=== PATIENT | male | born 1935 | race Caucasian/White ===

== ENCOUNTER 2019-07-12 12:20 | Outpatient (CLI) | payer MEDICARE, BC, SELFPAY ==
[2019-07-12 12:37] LABS: Basophils % 0.6 %; Eosinophils % 1.2 %; Hematocrit 33.9 % (42.0-52.0); Hemoglobin 10.2 g/dL (11.7-16.6); Lymphocytes # 0.6 10^3/uL (0.8-4.8); Lymphocytes % 33.7 %; Mean Corpuscular HGB Conc 30.1 g/dL (30.0-36.0); Mean Corpuscular Volume 86.3 fL (80-94); Monocytes # 0.3 10^3/uL (0.2-0.9); Monocytes % 15.3 %; Nucleated Red Blood Cells % 0 %; Platelet Count 66 10^3/cmm (130-400); Red Blood Count 3.93 10^6/uL (4.1-5.3); Red Cell Distribution Width 24.2 % (12.1-15.1); White Blood Count 1.6 10^3/uL (4.0-10.0)
[2019-07-12 14:11] LABS: Neutrophils # 0.8 10^3/uL (1.8-7.7); Slide Review Slide Review Perform
[2019-07-13 10:34] LABS: Ferritin 33 ng/mL (30-400); Iron 69 ug/dL (59-158); Percent Saturation 21.1 % (20-50); Thyroid Stimulating Hormone 18.07 uIU/mL (0.27-4.20); Total Iron Binding Capacity 327 mcg/dl; Unsaturated Iron Binding 258 ug/dL (112-347); Vitamin B12 319 pg/mL (232-1245)
[2019-07-13 11:32] LABS: Folate Level > 20.0 ng/mL (4.5-32.2)
--- NOTE | 2019-07-13 13:20 | ONC CON_ITS ---
Dr. Toribio New Patient Note Patient: Claudine York Unit #: [id number]: 1935 Dicatated By: Dena Toribio M.D.Date of Visit: Jul 12, 2019 Onc MED New Patient/Consult Referring Physician: Callum Garcia History of Present Illness: Mr. Desi York, is a 83-year-old gentleman who was recently diagnosed pancytopenia when his routine labs done on 06/13/2019 showed white blood count 1.1 hemoglobin 8.3 hematocrit 28.5 platelets 73,000 with a normal differential and his TSH was 52.0 B12 was 292 and patient was started on thyroid supplement Synthroid 50 ???g by mouth daily his repeat TSH on 06/25/2019 was 27.80 as repeat CBC done on 06/25/2019 shows white blood count 1.7, hemoglobin 8.1 hematocrit 28 platelets 76,000 MCV 82.1 and peripheral blood smear showed atypical lymphocytes. Patient denies any night sweats, denies any recent fever, denies any recent flulike symptoms, denies any peripheral lymphadenopathy, denies abdominal fullness, denies any weight loss. As per patient he is undergoing some sort of stress because of his son was diagnosed with esophageal cancer in April 2017 and he after few months and then suffered a stroke and now in a [facility]. Patient has long-standing history of alcohol use, as per patient he used to drink beer on daily basis for more than 30 years. But no hard liquor Patient denies starting any new medication recently patient denies any melena or hematochezia patient said he had colonoscopy done about 10 years ago at that time couple of polyps were removed and they were benign. Patient denies any indigestion or heartburn denies any jaundice denies any urine or stool color changes denies any petechiae or ecchymosis denies any headaches blurred vision double vision denies any dysuria . Past Medical History: Mr. York's medical history consists of anxiety, bph, depression, history of dvt, hyperlipidemia, hypertension, hypothyroidism, and type II diabetes. Past Surgical History: Mr. York's surgical/procedural history consists of colonoscopy. Medications: amLODIPine Besy-Benazepril HCl 1 Capsule (of 10-40 mg) Oral daily, Ferrous Sulfate 1 Tablet (of 325 (65 fe) mg) Oral b.i.d., glipiZIDE 1 Tablet (of 10 mg) Oral daily, Levothyroxine Sodium 1 Tablet (of 50 mcg) Oral daily, Pioglitazone HCl 1 Tablet (of 15 mg) Oral daily, Pravastatin Sodium 1 Tablet (of 40 mg) Oral daily, Tamsulosin HCl 1 Capsule (of 0.4 mg) Oral daily, Vitamin C 1 Capsule Oral b.i.d. Allergies: hydroCHLOROthiazide and Simvastatin. Social History: Mr. York is . Mr. York no longer smokes. He is a former drinker. Family History: There is no documented family history. Review Of Symptoms: Constitutional - Appetite is good and weight is stable. No fever, chills, hot flashes, or night sweats. Energy level is poor, ENMT - No sinus congestion/drainage. No mouth sores. No sore throat or difficulty swallowing, Hematologic/Lymphatic - Positive for easy bruising, Respiratory - No shortness of breath. No cough. No pleuritic pain or hemoptysis, Cardiovascular - No angina pain. No palpitations, Gastrointestinal - No nausea or vomiting. No heartburn or acid reflux. No diarrhea or constipation. No blood in the stool. Positive for black stools (Pt states he is taking iron supplements), Genitourinary (M) - No dysuria or hematuria. No urinary frequency. No urgency or incontinence, Musculoskeletal - Positive for joint pain, Neurologic - No headache or dizziness. No numbness/paresthesias or other focal neurologic symptoms, Psychiatric - No depression. No insomnia. Positive for anxiety and stress. Vital Signs: Performed on Jul 12, 2019 14:23: 0, 25.47, 2.07 sq.m, 72 in, 97 %, 63 /min, 18 /min, 172/67 mm(hg) (HIGH), 97.7 F (LOW), and 187.8 lbs (HIGH). Performance Status: 0 - Fully active, able to carry on all predisease activities without restrictions. (ECOG) Physical Examination: ENMT - No oral exudates, ulcers, masses, thrush or mucositis. Oropharynx clear. Tongue normal, Hematologic/Lymphatic - No petechiae or purpura. No tender or palpable lymph nodes in the cervical, supraclavicular, axillary or inguinal area, Respiratory - Lungs are clear to auscultation without rhonchi or wheezing, Cardiovascular - Regular rate and rhythm of heart, Abdomen - Non-tender, non-distended, Good bowel sounds. No guarding or rebound tenderness. No pulsatile masses, Extremities - no edema. Lab/Imaging: Most recent lab results are not available for this patient. Impression: Pancytopenia, etiology, appears multifactorial including but not limited to, considering his age underlying myelodysplasia cannot be ruled out other possibility could be nutritional B12 or iron deficiency or copper deficiency and or due to hypothyroidism , recently diagnosed with hypothyroidism and started on thyroid supplements. Or splenic sequestration or primary marrow disorder. Plan: Discussed with patient regarding his labs white blood count 1.16 globin 10.2 hematocrit 33.9 platelets 66,000 ANC 800 with normal limited differential Clinically, patient is doing well with no recurrent infections or evidence of gross bleeding, hemoglobin has improved to 10.2 g from 8.2 g on 06/25/2019. At this point we will consider abdominal sonogram to rule out hepatic cirrhosis or splenomegaly as patient has long-standing history of alcohol use. Also check B12 folate and iron studies and TSH level and if above-mentioned workup remained inconclusive we'll consider bone marrow evaluation. Patient return to clinic in 2 weeks with CBC CMP Signed By: Dena Toribio M.D. <<Signature on File>>
[2019-07-14 07:48] LABS: PROTEIN, TOTAL 6.4 g/dL (6.1-8.1)
[2019-07-16 12:21] LABS: ABNORMAL PROTEIN BAND 1 0.1 g/dL (NONE DETECTED); ALBUMIN 3.8 g/dL (3.8-4.8); ALPHA 1 GLOBULIN 0.3 g/dL (0.2-0.3); ALPHA 2 GLOBULIN 0.7 g/dL (0.5-0.9); BETA 1 GLOBULIN 0.5 g/dL (0.4-0.6); BETA 2 GLOBULIN 0.3 g/dL (0.2-0.5); GAMMA GLOBULIN 0.8 g/dL (0.8-1.7)
== END 2019-07-12 12:21 | disposition home or self-care (01) ==
LOC: ONCMED 12:30
PROVIDERS: Visit Provider Internal Medicine Hematology & Oncology
DX: D61.818 Other pancytopenia (principal); F41.8 Other specified anxiety disorders; N40.0 Benign prostatic hyperplasia without lower urinary tract symptoms; E78.5 Hyperlipidemia, unspecified; I10 Essential (primary) hypertension; E03.9 Hypothyroidism, unspecified; E11.9 Type 2 diabetes mellitus without complications; F10.20 Alcohol dependence, uncomplicated; Z79.84 Long term (current) use of oral hypoglycemic drugs; Z86.718 Personal history of other venous thrombosis and embolism
CPT/HCPCS: 36415; 82607; 82728; 82746; 83540; 83550; 84155; 84165; 84443; 85025; 99204

== ENCOUNTER 2019-07-26 07:02 | Outpatient (CLI) | payer MEDICARE, BC, SELFPAY ==
--- NOTE | 2019-07-26 07:05 | US_ITS ---
WS: [id number] Complete ABDOMINAL ULTRASOUND HISTORY: Pancytopenia COMPARISON: None available. Liver: 14.3 cm in length. Liver is normal size and echogenicity with no mass or intrahepatic dilatati on. Gallbladder: Gallbladder is not identified. May be contracted or surgically removed. There is a soft tissue mass in the region of the gallbladder fossa which could be contracted gallbladder with wall th ickening and stones. No history of cholecystectomy. Pancreas: Normal size and echogenicity. CBD: 0.3 cm. Right kidney: 10.6 cm x 5.2 cm x 4.7 cm. Normal size kidney. There is a solid exophytic mass from th e inferior pole measuring 3.3 x 2.7 x 3.1 cm. There is increased vascularity. Increased vascularity i s significant. No obstruction. Left kidney: 10.5 cm x 5.1 cm x 3.5 cm. Exophytic cystic mass is slightly elongated and oval from th e inferior lateral kidney. Cyst measures 7.5 x 3.6 x 7.8 cm. Spleen: Marked enlargement of the spleen. Spleen measures 19.1 cm in length and transversely by 18.3 cm. Normal homogeneous echotexture. Abdominal aorta and IVC are within normal limits. No ascites. 4. Recommendation: Follow-up CT abdomen and pelvis with IV and oral contrast to a reevaluate the abn ormalities as described in the above impression. US/US abdomen complete* [id number] IMPRESSION: 1. Severe splenomegaly. 2. Solid mass inferior pole RIGHT kidney measures 3.3 x 2.7 x 3.1 cm. Suspicio us for renal cell carcinoma. 3. Abnormal gallbladder. Gallbladder is not identified as a discrete structure . Soft tissue mass in the region of the gallbladder fossa.
== END 2019-07-26 07:03 | disposition home or self-care (01) ==
LOC: US 07:03
PROVIDERS: Visit Provider Internal Medicine Hematology & Oncology
DX: D61.818 Other pancytopenia (principal); R16.1 Splenomegaly, not elsewhere classified; N28.89 Other specified disorders of kidney and ureter; K82.8 Other specified diseases of gallbladder
CPT/HCPCS: 76700

== ENCOUNTER 2019-07-27 10:57 | Outpatient (CLI) | payer MEDICARE, BC, SELFPAY ==
[2019-07-27 11:35] LABS: Basophils % 0.5 %; Eosinophils % 1.6 %; Hemoglobin 11.1 g/dL (11.7-16.6); Lymphocytes # 0.5 10^3/uL (0.8-4.8); Lymphocytes % 25.7 %; Mean Corpuscular HGB Conc 31.7 g/dL (30.0-36.0); Mean Corpuscular Volume 88.4 fL (80-94); Mean Platelet Volume 10.2 fL (7.4-10.4); Monocytes # 0.3 10^3/uL (0.2-0.9); Monocytes % 13.6 %; Neutrophils # 1.1 10^3/uL (1.8-7.7); Neutrophils % 58.1 %; Nucleated Red Blood Cells % 0 %; Platelet Count 90 10^3/cmm (130-400); Red Blood Count 3.96 10^6/uL (4.1-5.3); Red Cell Distribution Width 23.1 % (12.1-15.1); White Blood Count 1.9 10^3/uL (4.0-10.0)
--- NOTE | 2019-07-27 11:46 | ONC FU_ITS ---
Dr. Toribio follow up note Patient: Madison York Unit #: [id number]: 1935 Dicatated By: Dena Toribio M.D.Date of Visit:Jul 27, 2019 Onc Med Follow-up/Prog Note History of Present Illness: Mr. Desi York, is a 83-year-old gentleman who was recently diagnosed pancytopenia when his routine labs done on 06/13/2019 showed white blood count 1.1 hemoglobin 8.3 hematocrit 28.5 platelets 73,000 with a normal differential and his TSH was 52.0 B12 was 292 and patient was started on thyroid supplement Synthroid 50 ???g by mouth daily his repeat TSH on 06/25/2019 was 27.80 as repeat CBC done on 06/25/2019 shows white blood count 1.7, hemoglobin 8.1 hematocrit 28 platelets 76,000 MCV 82.1 and peripheral blood smear showed atypical lymphocytes. Patient denies any night sweats, denies any recent fever, denies any recent flulike symptoms, denies any peripheral lymphadenopathy, denies abdominal fullness, denies any weight loss. As per patient he is undergoing some sort of stress because of his son was diagnosed with esophageal cancer in April 2017 and he after few months and then suffered a stroke and now in a shelter. Patient has long-standing history of alcohol use, as per patient he used to drink beer on daily basis for more than 30 years. But no hard liquor Patient denies starting any new medication recently patient denies any melena or hematochezia patient said he had colonoscopy done about 10 years ago at that time couple of polyps were removed and they were benign. Patient denies any indigestion or heartburn denies any jaundice denies any urine or stool color changes denies any petechiae or ecchymosis denies any headaches blurred vision double vision denies any dysuria . Abdominal sonogram showed liver size normal, no mass seen. Marked enlargement of spleen mild 19.1 cm and 18.3 cm. Normal homogeneous t echotexture. Right kidney 10.6 x 5.2 x 4.7 cm normal-sized kidney there is a solid exophytic mass from the inferior pole measuring 3.3 x 2.7 x 3.1 cm there is increased vascularity. Left kidney 10.5 x 5.1 cm exophytic cystic mass is slightly elongated and or will from the inferior lateral kidney measuring 7.5 x 3.6 x 7.8 cm. Denies any specific complaints, no melena hematochezia, no nausea or vomiting no diarrhea constipation Medications: amLODIPine Besy-Benazepril HCl 1 Capsule (of 10-40 mg) Oral daily, Ferrous Sulfate 1 Tablet (of 325 (65 fe) mg) Oral b.i.d., glipiZIDE 1 Tablet (of 10 mg) Oral daily, Levothyroxine Sodium 1 Tablet (of 50 mcg) Oral daily, Pioglitazone HCl 1 Tablet (of 15 mg) Oral daily, Pravastatin Sodium 1 Tablet (of 40 mg) Oral daily, Tamsulosin HCl 1 Capsule (of 0.4 mg) Oral daily, Vitamin C 1 Capsule Oral b.i.d. Allergies: hydroCHLOROthiazide and Simvastatin. Review of Systems: Constitutional - Appetite is good and weight is stable. No fever, chills, hot flashes, or night sweats. Energy level is poor, ENMT - No sinus congestion/drainage. No mouth sores. No sore throat or difficulty swallowing, Hematologic/Lymphatic - Positive for easy bruising, Respiratory - No shortness of breath. No cough. No pleuritic pain or hemoptysis, Cardiovascular - No angina pain. No palpitations, Gastrointestinal - No nausea or vomiting. No heartburn or acid reflux. No diarrhea or constipation. No blood in the stool. Positive for black stools (Pt states he is taking iron supplements), Genitourinary (M) - No dysuria or hematuria. No urinary frequency. No urgency or incontinence, Musculoskeletal - Positive for joint pain, Neurologic - No headache or dizziness. No numbness/paresthesias or other focal neurologic symptoms, Psychiatric - Positive for depression. No insomnia. Positive for anxiety and stress. Vital Signs: Performed on Jul 27, 2019 11:24 Height - 72.00 in Weight - 187 lbs (LOW) BSA - 2.07 sq.m BMI - 25.36 Temperature - 97.3 F (LOW) Pulse - 70 /min Respiration - 18 /min BP - 177/77 mm(hg) (HIGH) O2 Sat - 98 % Pain - 2 Performance Status: 0 - Fully active, able to carry on all predisease activities without restrictions. (ECOG) Physical Examination: Physical Exam-Comments is not available for this patient. Lab/Imaging: Test performed on Jul 12, 2019 12:28 Ferritin 33 ng/mL Iron 69 mcg/dL TSH 18.07 uIU/mL Vitamin B12 319 pg/mL Iron Binding Capacity (TIBC) 327 mcg/dl % Iron Saturation 21.1 % UIBC 258 mcg/dL WBC 1.6 10 3/uL RBC 3.93 10 6/uL HGB 10.2 g/dL HCT 33.9 % MCV 86.3 fL MCH 26.0 pg MCHC 30.1 g/dL RDW 24.2 % Platelet Count 66 10 3/cmm MPV 11.0 fL Neutrophils 0.8 10 3/uL Lymphocytes 0.6 10 3/uL Monocytes 0.3 10 3/uL Eosinophils 0.0 10 3/uL Basophils 0.0 10 3/uL Neutrophil % 48.0 % Lymphocyte % 33.7 % Monocyte % 15.3 % Eosinophil % 1.2 % Basophils % 0.6 % CBC Slide Review Slide Review Perform SLIDE REVIEW AGREES WITH AUTOMATED RESULTS ST Impression: Pancytopenia, etiology, appears multifactorial including but not limited to, considering his age underlying myelodysplasia cannot be ruled out other possibility could be nutritional B12 or iron deficiency or copper deficiency and or due to hypothyroidism , recently diagnosed with hypothyroidism and started on thyroid supplements. Or splenic sequestration or primary marrow disorder. Abdominal sonogram done on 07/26/2019 showed marked enlargement of spleen measuring 19.1 x 18.3 cm normal homogeneous echotexture. Right kidney shows solid exophytic mass from inferior pole measuring 2.3 x 2.7 x 3.1 cm with increased vascularity Left kidney shows exophytic cystic mass measuring 7.5 x 3.6 x 7.8 cm. Liver is normal size and echodensity. And is a soft tissue mass in the region of gallbladder fossa which could be contracted gallbladder with wall thickening and stones. Plan: Discussed with patient regarding his abdominal sonogram findings. Patient was supposed to get CBC done this morning but somehow was not done. But his abdominal sonogram showed massive splenomegaly with normal homogeneous echotexture, etiology unclear could be due to hepatic cirrhosis but sonogram shows no abnormality in the liver patient does have history of chronic alcohol use over many years as per patient usually he used to drink beer not hard liquor. And other concern is right kidney exophytic solid mass and so CT scan of abdomen/pelvis is recommended. next So his pancytopenia could be due to splenic sequestration and anemia may have additional causes like chronic GI blood loss like esophageal varices . And considering his age underlying myelodysplasia cannot be ruled out. We will schedule for CT scan of abdomen pelvis to have more detailed look at these abnormality seen on abdominal sonogram and then plan accordingly patient return to clinic in a week with CT scan of abdomen pelvis and CBC CMP. Signed By: Dena Toribio M.D. <<Signature on File>>
[2019-07-27 11:47] LABS: Alanine Aminotransferase 16 U/L (0-41); Albumin Level 4.2 g/dL (3.5-5.2); Alkaline Phosphatase 109 IU/L (40-130); Anion Gap 14.3 (5-19); Aspartate Amino Transferase 25 U/L (0-40); Blood Urea Nitrogen 16 mg/dL (8-23); Calcium 9.7 mg/dL (8.5-10.5); Carbon Dioxide 28 mmol/L (22-29); Chloride 99 mmol/L (98-107); Globulin 2.2 g/dL (1.3-4.6); Glucose 326 mg/dL (65-115); Osmolality Calculated 293 mOsm/kg (285-295); Potassium 4.3 mmol/L (3.5-5.1); Sodium 137 mmol/L (136-145); Total Bilirubin 0.2 mg/dL (0.15-1.2); Total Protein 6.4 g/dL (6.6-8.7)
[2019-07-27 12:08] LABS: Slide Review Slide Review Perform
== END 2019-07-27 10:58 | disposition home or self-care (01) ==
LOC: ONCMED 10:59
PROVIDERS: Visit Provider Internal Medicine Hematology & Oncology
DX: D61.818 Other pancytopenia (principal); R16.1 Splenomegaly, not elsewhere classified; N28.89 Other specified disorders of kidney and ureter; R19.09 Other intra-abdominal and pelvic swelling, mass and lump; E03.9 Hypothyroidism, unspecified; K80.80 Other cholelithiasis without obstruction; F10.21 Alcohol dependence, in remission
CPT/HCPCS: 36415; 80053; 85025; 99214

== ENCOUNTER 2019-08-08 10:20 | Outpatient (CLI) | payer MEDICARE, BC, SELFPAY ==
[2019-08-08 12:00] LABS: Basophils % 0.5 %; Eosinophils % 1.1 %; Hematocrit 35.8 % (42.0-52.0); Hemoglobin 11.2 g/dL (11.7-16.6); Lymphocytes # 0.6 10^3/uL (0.8-4.8); Mean Corpuscular HGB Conc 31.3 g/dL (30.0-36.0); Mean Corpuscular Hemoglobin 27.6 pg (28.0-34.0); Mean Corpuscular Volume 88.2 fL (80-94); Monocytes # 0.2 10^3/uL (0.2-0.9); Monocytes % 12.8 %; Neutrophils % 51.1 %; Nucleated Red Blood Cells % 0 %; Platelet Count 76 10^3/cmm (130-400); Red Blood Count 4.06 10^6/uL (4.1-5.3); Red Cell Distribution Width 22.3 % (12.1-15.1); White Blood Count 1.9 10^3/uL (4.0-10.0)
[2019-08-08 12:24] LABS: Alanine Aminotransferase 22 U/L (0-41); Albumin Level 4.2 g/dL (3.5-5.2); Alkaline Phosphatase 126 IU/L (40-130); Anion Gap 17.4 (5-19); Aspartate Amino Transferase 30 U/L (0-40); Blood Urea Nitrogen 17 mg/dL (8-23); Calcium 9.5 mg/dL (8.5-10.5); Carbon Dioxide 25 mmol/L (22-29); Chloride 101 mmol/L (98-107); Globulin 2.8 g/dL (1.3-4.6); Glucose 318 mg/dL (65-115); Osmolality Calculated 297 mOsm/kg (285-295); Potassium 4.4 mmol/L (3.5-5.1); Sodium 139 mmol/L (136-145); Total Bilirubin 0.2 mg/dL (0.15-1.2)
[2019-08-08 14:07] LABS: Slide Review Slide Review Perform
== END 2019-08-08 10:21 | disposition home or self-care (01) ==
LOC: ONCMED 13:56
PROVIDERS: Visit Provider Internal Medicine Hematology & Oncology
DX: D61.818 Other pancytopenia (principal)
CPT/HCPCS: 36415; 80053; 85025

== ENCOUNTER 2019-08-09 09:47 | Outpatient (CLI) | payer MEDICARE, BC, SELFPAY ==
--- NOTE | 2019-08-09 10:00 | CT_ITS ---
WS: [id number] CT ABDOMEN AND PELVIS WITH CONTRAST HISTORY: PANCYTOPENIA TECHNIQUE: Imaging performed of the abdomen and pelvis with IV contrast. Single phase imaging of the abdomen. Coronal and sagittal reformats are submitted. All CT scans at [facility] use at least one of these dose optimization techniques: automated exposure control; mA and/or kV adjustment per patient size (includes targeted exams where dose is matched to clinical indication); or iterativ e reconstruction. IV CONTRAST: Omnipaque 300; 95 mL IV. Oral contrast: Yes. DLP: 1203.41 mGycm COMPARISON: Ultrasound abdomen 07/26/2019 Lower thorax: Well-circumscribed noncalcified 4 mm nodule in the RIGHT middle lobe. Heart size is nor mal. No hiatal hernia. Liver/biliary system: Liver is very slightly enlarged. No mass or bile duct dilatation. Portal vein m easures 19 mm. Gallbladder: No history of prior cholecystectomy. Normal gallbladder is not identified. In the gallbl adder fossa there is a collection of high density material which is probably stones in a contracted g allbladder. Several of the stones are directed toward the cystic duct although there is no obstructio n. Pancreas: Normal. Spleen: Markedly enlarged spleen extends over length of 21.8 cm x 11.2 cm transversely. Spleen is enl arged with mass effect upon the LEFT kidney and pancreatic tail. Enlargement of the splenic artery. N o splenic mass. Adrenal glands: Normal. Right kidney: Normal size RIGHT kidney. Solid enhancing mass is partially exophytic from the lower po le. Called with a type enhancement of the solid mass. Mass measures 3.7 x 3.3 x 3.0 cm. No renal obst ruction. Left kidney: Exophytic cyst from the lower pole of the LEFT kidney measures 6.9 x 3.4 x 3.2 cm. No so lid mass. Intermittent wall thickening and mild enhancement of the mid to distal LEFT ureter. No ston e is identified. Aorta: Atherosclerosis aorta. Moderate calcification and ectasia but no aneurysm. Lymphadenopathy: There are a few very nonspecific and subcentimeter retroperitoneal lymph nodes. Larg est lymph node is aortocaval measuring 9 mm in diameter. Free fluid: None. GI tract: No GI tract obstruction. The appendix is not definitely identified. There are numerous dive rticula in the descending and sigmoid colon. No acute inflammatory process. Abdominal wall: Unremarkable abdominal wall. No hernia. Pelvis: Well-distended urinary bladder. Mild diffuse bladder wall thickening. There is asymmetric thi ckening of the bladder wall on the RIGHT. Prominent diverticulum also on the RIGHT lateral wall. Pros lópez gland is enlarged and indents the urinary bladder. Gland measures 5.3 x 4.2 cm with a large cent ral calcification. Bones: Thoracolumbar scoliosis. CT/CT abdomen pelvis w con* [id number] IMPRESSION: 1. Solid mass lower pole RIGHT kidney measures 3.7 x 3.3 x 3.0 cm. Consistent with renal cell carcinoma. 2. Hepatosplenomegaly. Marked enlargement of the spleen with a dilated portal vein. Findings consistent with portal hypertension. 3. Simple LEFT renal cyst. 4. Atherosclerosis aorta. 5. 4 mm noncalcified RIGHT middle lobe nodule. Recommend follow-up chest CT in 6 months. 6. There is mild dilatation with enhancement involving the mid to distal LEFT ureter of uncertain etiology. May be postinflammatory. Cannot exclude mass or n eoplasm. Consider follow-up evaluation by urology. 7. Mild bladder wall thickening and a RIGHT lateral diverticulum. Findings are probably due to a bladder obstruction and hypertrophy as there is an enlarged prostate gland. 8. Sigmoid diverticulosis without acute diverticulitis. 9. Cholelithiasis in a markedly contracted gallbladder with no biliary dilatat ion.
[2019-08-09] MEDS: iohexol 300 mg/mL 50 mL Btl PO (11:33)
[2019-08-09] MEDS: iohexol 300 mg/mL 100 mL Btl IV (11:46)
== END 2019-08-09 09:48 | disposition home or self-care (01) ==
PROVIDERS: PCP Internal Medicine; Visit Provider Internal Medicine Hematology & Oncology
DX: D61.818 Other pancytopenia (principal); R16.2 Hepatomegaly with splenomegaly, not elsewhere classified; N28.89 Other specified disorders of kidney and ureter; N28.1 Cyst of kidney, acquired; I70.0 Atherosclerosis of aorta; K57.30 Diverticulosis of large intestine without perforation or abscess without bleeding; K80.20 Calculus of gallbladder without cholecystitis without obstruction
CPT/HCPCS: 74177

== ENCOUNTER 2019-08-17 11:49 | Outpatient (CLI) | payer MEDICARE, BC, SELFPAY ==
--- NOTE | 2019-08-17 16:23 | ONC FU_ITS ---
Dr. Toribio follow up note Patient: Madison York Unit #: [id number]: 1935 Dicatated By: Dena Toribio M.D.Date of Visit:Aug 17, 2019 Onc Med Follow-up/Prog Note History of Present Illness: Mr. Desi York, is a 83-year-old gentleman who was recently diagnosed pancytopenia when his routine labs done on 06/13/2019 showed white blood count 1.1 hemoglobin 8.3 hematocrit 28.5 platelets 73,000 with a normal differential and his TSH was 52.0 B12 was 292 and patient was started on thyroid supplement Synthroid 50 ???g by mouth daily his repeat TSH on 06/25/2019 was 27.80 as repeat CBC done on 06/25/2019 shows white blood count 1.7, hemoglobin 8.1 hematocrit 28 platelets 76,000 MCV 82.1 and peripheral blood smear showed atypical lymphocytes. Patient denies any night sweats, denies any recent fever, denies any recent flulike symptoms, denies any peripheral lymphadenopathy, denies abdominal fullness, denies any weight loss. As per patient he is undergoing some sort of stress because of his son was diagnosed with esophageal cancer in April 2017 and he after few months and then suffered a stroke and now in a residential. Patient has long-standing history of alcohol use, as per patient he used to drink beer on daily basis for more than 30 years. But no hard liquor Patient denies starting any new medication recently patient denies any melena or hematochezia patient said he had colonoscopy done about 10 years ago at that time couple of polyps were removed and they were benign. Patient denies any indigestion or heartburn denies any jaundice denies any urine or stool color changes denies any petechiae or ecchymosis denies any headaches blurred vision double vision denies any dysuria . Abdominal sonogram showed liver size normal, no mass seen. Marked enlargement of spleen mild 19.1 cm and 18.3 cm. Normal homogeneous t echotexture. Right kidney 10.6 x 5.2 x 4.7 cm normal-sized kidney there is a solid exophytic mass from the inferior pole measuring 3.3 x 2.7 x 3.1 cm there is increased vascularity. Left kidney 10.5 x 5.1 cm exophytic cystic mass is slightly elongated and or will from the inferior lateral kidney measuring 7.5 x 3.[address] scan of abdomen done on 08/09/2019 showed solid mass lower pole right kidney measuring 2.7 x 2.3 x 3 cm consistent with renal cell carcinoma Hepatosplenomegaly marked enlargement of spleen with dilated portal vein. Finding consistent with portal hypertension. Simple left renal cyst 4 mm noncalcified right middle lobe nodule recommend CT scan 6 months. Mild dilatation with enhancement involving mid to distal left ureter of uncertain etiology Mild bladder wall thickening and right lateral diverticulum probably due to bladder obstruction or hypertrophic as there is an enlarged prostate gland. Came for follow-up, denies any specific complaints, denies any fever or chills, denies any nausea vomiting denies any abdominal pain, denies any melena hematochezia, denies any hemoptysis hematemesis, denies any particular ecchymosis. Denies any hematuria. Patient said he has history of urinary bladder stones, causing obstruction, for which he went to the urologist in [place], Medications: amLODIPine Besy-Benazepril HCl 1 Capsule (of 10-40 mg) Oral daily, Ferrous Sulfate 1 Tablet (of 325 (65 fe) mg) Oral b.i.d., glipiZIDE 1 Tablet (of 10 mg) Oral daily, Levothyroxine Sodium 1 Tablet (of 50 mcg) Oral daily, Pioglitazone HCl 1 Tablet (of 15 mg) Oral daily, Pravastatin Sodium 1 Tablet (of 40 mg) Oral daily, Tamsulosin HCl 1 Capsule (of 0.4 mg) Oral daily, Vitamin C 1 Capsule Oral b.i.d. Allergies: hydroCHLOROthiazide and Simvastatin. Review of Systems: Constitutional - Appetite is good and weight is stable. No fever, chills, hot flashes, or night sweats. Energy level is poor, ENMT - No sinus congestion/drainage. No mouth sores. No sore throat or difficulty swallowing, Hematologic/Lymphatic - Positive for easy bruising, Respiratory - No shortness of breath. No cough. No pleuritic pain or hemoptysis, Cardiovascular - No angina pain. No palpitations, Gastrointestinal - No nausea or vomiting. No heartburn or acid reflux. No diarrhea or constipation. No blood in the stool. Positive for black stools (Pt states he is taking iron supplements), Genitourinary (M) - No dysuria or hematuria. No urinary frequency. No urgency or incontinence, Musculoskeletal - Positive for joint pain, Neurologic - No headache or dizziness. No numbness/paresthesias or other focal neurologic symptoms, Psychiatric - Positive for depression. No insomnia. Positive for anxiety and stress. Vital Signs: Performed on Aug 17, 2019 12:06 Height - 72.00 in Weight - 184.4 lbs (LOW) BSA - 2.06 sq.m BMI - 25.01 Temperature - 97.6 F (LOW) Pulse - 68 /min Respiration - 17 /min BP - 165/70 mm(hg) (HIGH) O2 Sat - 98 % Pain - 0 Performance Status: 0 - Fully active, able to carry on all predisease activities without restrictions. (ECOG) Physical Examination: ENMT - no mouth sores, Respiratory - Lungs are clear to auscultation, Cardiovascular - Regular rate and rhythm of heart, Abdomen - hepatosplenomegaly present,Good bowel sounds. No guarding or rebound tenderness, Extremities - no edema. Lab/Imaging: Test performed on Aug 08, 2019 10:20 Sodium 139 mmol/L Potassium 4.4 mmol/L Chloride 101 mmol/L CO2 25 mmol/L Anion Gap 17.4 BUN 17 mg/dL Creatinine 1.0 mg/dL Cr Clearance (Est) 65.9700 mL/min Glucose 318 mg/dL Calcium 9.5 mg/dL Protein, Total 7.0 g/dL Albumin 4.2 g/dL Globulin 2.8 g/dL Bilirubin, Total 0.2 mg/dL ALT (SGPT) 22 U/L AST (SGOT) 30 U/L Alkaline Phosphatase 126 IU/L WBC 1.9 10 3/uL RBC 4.06 10 6/uL HGB 11.2 g/dL HCT 35.8 % MCV 88.2 fL MCH 27.6 pg MCHC 31.3 g/dL RDW 22.3 % Platelet Count 76 10 3/cmm MPV 12.0 fL Neutrophils 1.0 10 3/uL Lymphocytes 0.6 10 3/uL Monocytes 0.2 10 3/uL Eosinophils 0.0 10 3/uL Basophils 0.0 10 3/uL Neutrophil % 51.1 % Lymphocyte % 34.0 % Monocyte % 12.8 % Eosinophil % 1.1 % Basophils % 0.5 % CBC Slide Review Slide Review Perform SLIDE REVIEW AGREES WITH AUTO DIFF. Test performed on Jul 12, 2019 12:28 Ferritin 33 ng/mL Iron 69 mcg/dL TSH 18.07 uIU/mL Vitamin B12 319 pg/mL Iron Binding Capacity (TIBC) 327 mcg/dl % Iron Saturation 21.1 % UIBC 258 mcg/dL Impression: Pancytopenia, etiology, appears multifactorial including but not limited to, considering his age underlying myelodysplasia cannot be ruled out other possibility could be nutritional B12 or iron deficiency or copper deficiency and or due to hypothyroidism , recently diagnosed with hypothyroidism and started on thyroid supplements. Or splenic sequestration or primary marrow disorder. Abdominal sonogram done on 07/26/2019 showed marked enlargement of spleen measuring 19.1 x 18.3 cm normal homogeneous echotexture. Right kidney shows solid exophytic mass from inferior pole measuring 2.3 x 2.7 x 3.1 cm with increased vascularity Left kidney shows exophytic cystic mass measuring 7.5 x 3.6 x 7.8 cm. Liver is normal size and echodensity. And is a soft tissue mass in the region of gallbladder fossa which could be contracted gallbladder with wall thickening and stones. 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 As far as pancytopenia is concern, patient is not symptomatic e.g. no evidence of gross bleeding, and there's no symptoms due to mild anemia. So no further workup needed but continue to monitor But concern is right kidney mass seen again on CT scan of abdomen and findings are consistent with renal cell carcinoma. Discussed with patient and we will refer him to urology Dr. Ortiz for evaluation and also for chronic changes seen in urinary bladder and left ureter. Patient return to 1 week after urology evaluation with CBC. Signed By: Dena Toribio M.D. <<Signature on File>>
== END 2019-08-17 11:50 | disposition home or self-care (01) ==
LOC: ONCMED 11:49
PROVIDERS: PCP Internal Medicine; Visit Provider Internal Medicine Hematology & Oncology
DX: D61.818 Other pancytopenia (principal); N28.89 Other specified disorders of kidney and ureter; R16.2 Hepatomegaly with splenomegaly, not elsewhere classified
CPT/HCPCS: 99214

== ENCOUNTER → 2019-08-21 10:50 | Outpatient (BNVA) | payer MEDICARE, BC, SELFPAY | PROVIDERS: PCP Internal Medicine; Visit Provider Urology | DX: N28.89 Other specified disorders of kidney and ureter (principal) | CPT/HCPCS: 80053; 81001 ==

== ENCOUNTER 2019-09-14 08:50 | Outpatient (CLI) | payer MEDICARE, BC, SELFPAY ==
--- NOTE | 2019-10-15 16:09 | ONC FU_ITS ---
Dr. Toribio follow up note Patient: Madison York Unit #: [id number]: 1935 Dicatated By: Dena Toribio M.D.Date of Visit:September 14, 2019 Onc Med Follow-up/Prog Note History of Present Illness: Mr. Desi York, is a 83-year-old gentleman who was recently diagnosed pancytopenia when his routine labs done on 06/13/2019 showed white blood count 1.1 hemoglobin 8.3 hematocrit 28.5 platelets 73,000 with a normal differential and his TSH was 52.0 B12 was 292 and patient was started on thyroid supplement Synthroid 50 ???g by mouth daily his repeat TSH on 06/25/2019 was 27.80 as repeat CBC done on 06/25/2019 shows white blood count 1.7, hemoglobin 8.1 hematocrit 28 platelets 76,000 MCV 82.1 and peripheral blood smear showed atypical lymphocytes. Patient denies any night sweats, denies any recent fever, denies any recent flulike symptoms, denies any peripheral lymphadenopathy, denies abdominal fullness, denies any weight loss. As per patient he is undergoing some sort of stress because of his son was diagnosed with esophageal cancer in April 2017 and he after few months and then suffered a stroke and now in a fpc. Patient has long-standing history of alcohol use, as per patient he used to drink beer on daily basis for more than 30 years. But no hard liquor Patient denies starting any new medication recently patient denies any melena or hematochezia patient said he had colonoscopy done about 10 years ago at that time couple of polyps were removed and they were benign. Patient denies any indigestion or heartburn denies any jaundice denies any urine or stool color changes denies any petechiae or ecchymosis denies any headaches blurred vision double vision denies any dysuria . Abdominal sonogram showed liver size normal, no mass seen. Marked enlargement of spleen mild 19.1 cm and 18.3 cm. Normal homogeneous t echotexture. Right kidney 10.6 x 5.2 x 4.7 cm normal-sized kidney there is a solid exophytic mass from the inferior pole measuring 3.3 x 2.7 x 3.1 cm there is increased vascularity. Left kidney 10.5 x 5.1 cm exophytic cystic mass is slightly elongated and or will from the inferior lateral kidney measuring 7.5 x 3.[address] scan of abdomen done on 08/09/2019 showed solid mass lower pole right kidney measuring 2.7 x 2.3 x 3 cm consistent with renal cell carcinoma Hepatosplenomegaly marked enlargement of spleen with dilated portal vein. Finding consistent with portal hypertension. Simple left renal cyst 4 mm noncalcified right middle lobe nodule recommend CT scan 6 months. Mild dilatation with enhancement involving mid to distal left ureter of uncertain etiology Mild bladder wall thickening and right lateral diverticulum probably due to bladder obstruction or hypertrophic as there is an enlarged prostate gland. Patient said he has history of urinary bladder stones, causing obstruction, for which he went to the urologist in [place], Seen by Dr. Ortiz on 08/21/2019 regarding right kidney mass, as per patient treatment options including conservative observation were discussed patient opted for observation and now scheduled to see him in December 2019 with follow-up scan. Came for follow-up, denies any specific complaints, no nausea or vomiting, no diarrhea constipation, no hematuria, no melena hematochezia, no nosebleed or gum bleed, no fever or chills. Medications: amLODIPine Besy-Benazepril HCl 1 Capsule (of 10-40 mg) Oral daily, Ferrous Sulfate 1 Tablet (of 325 (65 fe) mg) Oral b.i.d., glipiZIDE 1 Tablet (of 10 mg) Oral daily, Levothyroxine Sodium 1 Tablet (of 50 mcg) Oral daily, Pioglitazone HCl 1 Tablet (of 15 mg) Oral daily, Pravastatin Sodium 1 Tablet (of 40 mg) Oral daily, Tamsulosin HCl 1 Capsule (of 0.4 mg) Oral daily, Vitamin C 1 Capsule Oral b.i.d. Allergies: hydroCHLOROthiazide and Simvastatin. Review of Systems: Constitutional - Appetite is good and weight is stable. No fever, chills, hot flashes, or night sweats. Energy level is poor, ENMT - No sinus congestion/drainage. No mouth sores. No sore throat or difficulty swallowing, Hematologic/Lymphatic - Positive for easy bruising, Respiratory - No shortness of breath. No cough. No pleuritic pain or hemoptysis, Cardiovascular - No angina pain. No palpitations, Gastrointestinal - No nausea or vomiting. No heartburn or acid reflux. Positive for diarrhea, no constipation. No blood in the stool. Positive for black stools (Pt states he is taking iron supplements), Genitourinary (M) - No dysuria or hematuria. No urinary frequency. No urgency or incontinence, Musculoskeletal - Positive for joint pain, Neurologic - No headache or dizziness. No numbness/paresthesias or other focal neurologic symptoms, Psychiatric - Positive for depression. No insomnia. Positive for anxiety and stress. Vital Signs: Performed on September 14, 2019 09:10 Height - 72.00 in Weight - 185.4 lbs (HIGH) BSA - 2.06 sq.m BMI - 25.14 Temperature - 98.3 F (LOW) Pulse - 65 /min Respiration - 16 /min BP - 167/70 mm(hg) (HIGH) O2 Sat - 97 % Pain - 1 Performance Status: 0 - Fully active, able to carry on all predisease activities without restrictions. (ECOG) Physical Examination: ENMT - no mouth sores, Respiratory - Lungs are clear, Cardiovascular - Regular rate and rhythm of heart, Abdomen - bowel sounds present, soft, splenomegaly, Extremities - no edema or rash. Lab/Imaging: Test performed on September 13, 2019 09:39 Glucose 328 mg/dL BUN 17 mg/dL Creatinine 1.04 mg/dL Cr Clearance (Est) 62.55 mL/min Sodium 139 mmol/L Potassium 4.3 mmol/L Chloride 102 mmol/L CO2 26 mmol/L Calcium 9.4 mg/dL Protein, Total 6.7 g/dL Albumin 4.2 g/dL Bilirubin, Total 0.3 mg/dL Alkaline Phosphatase 106 IU/L AST (SGOT) 23 IU/L ALT (SGPT) 16 IU/L WBC 1.9 10^9/L RBC 3.92 10^12/L HGB 11.5 g/dL HCT 35.0 % MCV 89.3 fl MCH 29.3 pg MCHC 32.9 g/dL RDW 18.1 % Platelet Count 65 10^9/L MPV 10.8 fL Neutrophils (Gran) 1.35 10^9/L Lymphocytes 0.27 10^9/L Monocytes 0.19 10^9/L Basophils 0.02 10^9/L Manual Lymphocytes 14 % Manual Monocytes 10 % Manual Eosinophils 1 % Test performed on Aug 08, 2019 10:20 Anion Gap 17.4 Globulin 2.8 g/dL Eosinophils 0.0 10 3/uL Neutrophil % 51.1 % Lymphocyte % 34.0 % Monocyte % 12.8 % Eosinophil % 1.1 % Basophils % 0.5 % CBC Slide Review Slide Review Perform SLIDE REVIEW AGREES WITH AUTO DIFF. Test performed on Jul 12, 2019 12:28 Ferritin 33 ng/mL Iron 69 mcg/dL TSH 18.07 uIU/mL Vitamin B12 319 pg/mL Iron Binding Capacity (TIBC) 327 mcg/dl % Iron Saturation 21.1 % UIBC 258 mcg/dL Impression: Pancytopenia, etiology, appears multifactorial including but not limited to, considering his age underlying myelodysplasia cannot be ruled out other possibility could be nutritional B12 or iron deficiency or copper deficiency and or due to hypothyroidism , recently diagnosed with hypothyroidism and started on thyroid supplements. Or splenic sequestration or primary marrow disorder. Abdominal sonogram done on 07/26/2019 showed marked enlargement of spleen measuring 19.1 x 18.3 cm normal homogeneous echotexture. Right kidney shows solid exophytic mass from inferior pole measuring 2.3 x 2.7 x 3.1 cm with increased vascularity Left kidney shows exophytic cystic mass measuring 7.5 x 3.6 x 7.8 cm. Liver is normal size and echodensity. And is a soft tissue mass in the region of gallbladder fossa which could be contracted gallbladder with wall thickening and stones. Plan: Discussed with patient regarding his labs white blood count 1.9 hemoglobin 11.5 hematocrit 35 platelets 65,000 ANC 1350 CMP within normal limit except glucose 328 Clinically, patient is doing well with no new signs symptoms. His follow-up CBC shows persistent moderate leukopenia /thrombocytopenia with a mild anemia and splenomegaly, etiology unclear his pancytopenia could be due to splenic sequestration due to splenomegaly and causes of splenomegaly unclear could be due to underlying lymphoproliferative disorder. Patient is not interested in further workup at this time rather prefer observation alone. Discussed with patient regarding whole blood flow cytometryor bone marrow evaluation, to rule out myelo or lymphoproliferative disorder, patient said he will think about this and if follow-up kidney scan shows no changes then he might consider workup for splenomegaly and pancytopenia. So we'll continue to observe and he will return to clinic in 3 months with CBC CMP and whole blood flow cytometry if patient agrees Signed By: Dena Toribio M.D. <<Signature on File>>
== END 2019-09-14 08:51 | disposition home or self-care (01) ==
LOC: ONCMED 08:54
PROVIDERS: PCP Internal Medicine; Visit Provider Internal Medicine Hematology & Oncology
DX: D61.818 Other pancytopenia (principal); D72.819 Decreased white blood cell count, unspecified; D69.6 Thrombocytopenia, unspecified; D64.9 Anemia, unspecified; E03.9 Hypothyroidism, unspecified; R16.1 Splenomegaly, not elsewhere classified; N28.1 Cyst of kidney, acquired; N28.89 Other specified disorders of kidney and ureter
CPT/HCPCS: G0463

== ENCOUNTER 2019-12-12 08:34 | Outpatient (CLI) | payer MEDICARE, BC, SELFPAY ==
[2019-12-12 09:12] LABS: Basophils % 0.5 %; Eosinophils % 0.9 %; Hematocrit 36.4 % (42.0-52.0); Hemoglobin 11.5 g/dL (11.7-16.6); Lymphocytes # 0.8 10^3/uL (0.8-4.8); Lymphocytes % 36.2 %; Mean Corpuscular HGB Conc 31.6 g/dL (30.0-36.0); Mean Corpuscular Hemoglobin 30.6 pg (28.0-34.0); Mean Corpuscular Volume 96.8 fL (80-94); Mean Platelet Volume 11.3 fL (7.4-10.4); Monocytes # 0.2 10^3/uL (0.2-0.9); Monocytes % 8.9 %; Neutrophils # 1.11 10^3/uL (1.8-7.7); Neutrophils % 52.1 %; Nucleated Red Blood Cells % 0 %; Platelet Count 74 10^3/cmm (130-400); Red Blood Count 3.76 10^6/uL (4.1-5.3); Red Cell Distribution Width 13.5 % (12.1-15.1); White Blood Count 2.1 10^3/uL (4.0-10.0)
[2019-12-12 09:44] LABS: Alanine Aminotransferase 18 U/L (0-41); Albumin Level 4.2 g/dL (3.5-5.2); Alkaline Phosphatase 115 IU/L (40-130); Anion Gap 10.3 (5-19); Aspartate Amino Transferase 25 U/L (0-40); Blood Urea Nitrogen 18 mg/dL (8-23); Calcium 8.9 mg/dL (8.5-10.5); Carbon Dioxide 28 mmol/L (22-29); Chloride 105 mmol/L (98-107); Globulin 2.3 g/dL (1.3-4.6); Glucose 204 mg/dL (65-115); Osmolality Calculated 290 mOsm/kg (285-295); Potassium 4.3 mmol/L (3.5-5.1); Sodium 139 mmol/L (136-145); Total Bilirubin 0.4 mg/dL (0.15-1.2); Total Protein 6.5 g/dL (6.6-8.7)
[2019-12-12 09:58] LABS: Slide Review Slide Review Perform
== END 2019-12-12 08:35 | disposition home or self-care (01) ==
LOC: ONCMED 08:38
PROVIDERS: PCP Internal Medicine; Visit Provider Internal Medicine Hematology & Oncology
DX: D61.818 Other pancytopenia (principal); N28.89 Other specified disorders of kidney and ureter
CPT/HCPCS: 80053; 85025

== ENCOUNTER 2019-12-13 06:08 | Outpatient (CLI) | payer MEDICARE, BC, SELFPAY ==
--- NOTE | 2019-12-13 13:30 | ONC FU_ITS ---
Dr. Toribio follow up note Patient: Madison York Unit #: [id number]: 1935 Dicatated By: Dena Toribio M.D.Date of Visit:Dec 13, 2019 Onc Med Follow-up/Prog Note History of Present Illness: Mr. Desi York, is a 83-year-old gentleman who was recently diagnosed pancytopenia when his routine labs done on 06/13/2019 showed white blood count 1.1 hemoglobin 8.3 hematocrit 28.5 platelets 73,000 with a normal differential and his TSH was 52.0 B12 was 292 and patient was started on thyroid supplement Synthroid 50 ???g by mouth daily his repeat TSH on 06/25/2019 was 27.80 as repeat CBC done on 06/25/2019 shows white blood count 1.7, hemoglobin 8.1 hematocrit 28 platelets 76,000 MCV 82.1 and peripheral blood smear showed atypical lymphocytes. Patient denies any night sweats, denies any recent fever, denies any recent flulike symptoms, denies any peripheral lymphadenopathy, denies abdominal fullness, denies any weight loss. As per patient he is undergoing some sort of stress because of his son was diagnosed with esophageal cancer in April 2017 and he after few months and then suffered a stroke and now in a long-term. Patient has long-standing history of alcohol use, as per patient he used to drink beer on daily basis for more than 30 years. But no hard liquor Patient denies starting any new medication recently patient denies any melena or hematochezia patient said he had colonoscopy done about 10 years ago at that time couple of polyps were removed and they were benign. Patient denies any indigestion or heartburn denies any jaundice denies any urine or stool color changes denies any petechiae or ecchymosis denies any headaches blurred vision double vision denies any dysuria . Abdominal sonogram showed liver size normal, no mass seen. Marked enlargement of spleen mild 19.1 cm and 18.3 cm. Normal homogeneous t echotexture. Right kidney 10.6 x 5.2 x 4.7 cm normal-sized kidney there is a solid exophytic mass from the inferior pole measuring 3.3 x 2.7 x 3.1 cm there is increased vascularity. Left kidney 10.5 x 5.1 cm exophytic cystic mass is slightly elongated and or will from the inferior lateral kidney measuring 7.5 x 3.[address] scan of abdomen done on 08/09/2019 showed solid mass lower pole right kidney measuring 2.7 x 2.3 x 3 cm consistent with renal cell carcinoma Hepatosplenomegaly marked enlargement of spleen with dilated portal vein. Finding consistent with portal hypertension. Simple left renal cyst 4 mm noncalcified right middle lobe nodule recommend CT scan 6 months. Mild dilatation with enhancement involving mid to distal left ureter of uncertain etiology Mild bladder wall thickening and right lateral diverticulum probably due to bladder obstruction or hypertrophic as there is an enlarged prostate gland. Patient said he has history of urinary bladder stones, causing obstruction, for which he went to the urologist in [place], Seen by Dr. Ortiz on 08/21/2019 regarding right kidney mass, as per patient treatment options including conservative observation were discussed patient opted for observation and now scheduled to see him in December 2019 with follow-up scan. Came for follow-up, denies any specific complaints, no nosebleed or gum bleed, no hematuria or melena or hematochezia no hemoptysis or hematemesis, but chronic ecchymosis involving upper extremities only. No jaundice. No fever chills. No abdominal pain. No night sweats, no recurrent fever, no weight loss. Patient has seen , for renal mass, now scheduled see him next week with a follow-up CT scan of abdomen to see if there is any progression. Medications: amLODIPine Besy-Benazepril HCl 1 Capsule (of 10-40 mg) Oral daily, Ferrous Sulfate 1 Tablet (of 325 (65 fe) mg) Oral b.i.d., glipiZIDE 1 Tablet (of 10 mg) Oral b.i.d., Levothyroxine Sodium 1 Tablet (of 50 mcg) Oral daily, Pravastatin Sodium 1 Tablet (of 40 mg) Oral daily, Tamsulosin HCl 1 Capsule (of 0.4 mg) Oral daily, Vitamin C 1 Capsule Oral b.i.d. Allergies: hydroCHLOROthiazide and Simvastatin. Review of Systems: Constitutional - Appetite is good and weight is stable. No fever, chills, hot flashes, or night sweats. Energy level is poor, ENMT - No sinus congestion/drainage. No mouth sores. No sore throat or difficulty swallowing, Hematologic/Lymphatic - Positive for easy bruising, Respiratory - No shortness of breath. No cough. No pleuritic pain or hemoptysis, Cardiovascular - No angina pain. No palpitations, Gastrointestinal - No nausea or vomiting. No heartburn or acid reflux. Positive for diarrhea, no constipation. No blood in the stool. Positive for black stools (Pt states he is taking iron supplements), Genitourinary (M) - No dysuria or hematuria. No urinary frequency. No urgency or incontinence, Musculoskeletal - Positive for joint pain, Neurologic - No headache or dizziness. No numbness/paresthesias or other focal neurologic symptoms, Psychiatric - Positive for depression. No insomnia. Positive for anxiety and stress. Vital Signs: Performed on Dec 13, 2019 13:01 Height - 72.00 in Weight - 185.8 lbs (HIGH) BSA - 2.06 sq.m BMI - 25.20 Temperature - 98.1 F (LOW) Pulse - 77 /min Respiration - 18 /min BP - 177/72 mm(hg) (HIGH) O2 Sat - 97 % Pain - 0 Performance Status: 0 - Fully active, able to carry on all predisease activities without restrictions. (ECOG) Physical Examination: ENMT - No mouth sores, no thrush, no jaundice, Respiratory - Lungs are clear, Cardiovascular - Regular rate and rhythm of heart, Abdomen - Soft, bowel sounds present, Extremities - No visible lower extremity edema but chronic healing ecchymosis involving upper extremities. Lab/Imaging: Test performed on September 13, 2019 09:39 Glucose 328 mg/dL BUN 17 mg/dL Creatinine 1.04 mg/dL Cr Clearance (Est) 62.55 mL/min Sodium 139 mmol/L Potassium 4.3 mmol/L Chloride 102 mmol/L CO2 26 mmol/L Calcium 9.4 mg/dL Protein, Total 6.7 g/dL Albumin 4.2 g/dL Bilirubin, Total 0.3 mg/dL Alkaline Phosphatase 106 IU/L AST (SGOT) 23 IU/L ALT (SGPT) 16 IU/L WBC 1.9 10^9/L RBC 3.92 10^12/L HGB 11.5 g/dL HCT 35.0 % MCV 89.3 fl MCH 29.3 pg MCHC 32.9 g/dL RDW 18.1 % Platelet Count 65 10^9/L MPV 10.8 fL Neutrophils (Gran) 1.35 10^9/L Lymphocytes 0.27 10^9/L Monocytes 0.19 10^9/L Basophils 0.02 10^9/L Manual Lymphocytes 14 % Manual Monocytes 10 % Manual Eosinophils 1 % Test performed on Aug 08, 2019 10:20 Anion Gap 17.4 Globulin 2.8 g/dL Eosinophils 0.0 10 3/uL Neutrophil % 51.1 % Lymphocyte % 34.0 % Monocyte % 12.8 % Eosinophil % 1.1 % Basophils % 0.5 % CBC Slide Review Slide Review Perform SLIDE REVIEW AGREES WITH AUTO DIFF. Test performed on Jul 12, 2019 12:28 Ferritin 33 ng/mL Iron 69 mcg/dL TSH 18.07 uIU/mL Vitamin B12 319 pg/mL Iron Binding Capacity (TIBC) 327 mcg/dl % Iron Saturation 21.1 % UIBC 258 mcg/dL Impression: Pancytopenia, etiology, appears multifactorial including but not limited to, considering his age underlying myelodysplasia cannot be ruled out other possibility could be nutritional B12 or iron deficiency or copper deficiency and or due to hypothyroidism , recently diagnosed with hypothyroidism and started on thyroid supplements. Or splenic sequestration or primary marrow disorder. Abdominal sonogram done on 07/26/2019 showed marked enlargement of spleen measuring 19.1 x 18.3 cm normal homogeneous echotexture. Right kidney shows solid exophytic mass from inferior pole measuring 2.3 x 2.7 x 3.1 cm with increased vascularity Being followed by urology Left kidney shows exophytic cystic mass measuring 7.5 x 3.6 x 7.8 cm., Liver is normal size and echodensity. And is a soft tissue mass in the region of gallbladder fossa which could be contracted gallbladder with wall thickening and stones. Plan: Discussed with patient regarding his labs white blood count 2.1 hemoglobin 11.5 hematocrit 36.4 platelets 74,000 CMP within normal limit except glucose 204 Clinically, patient is doing well, no evidence of gross bleeding except chronic ecchymosis involving upper extremities could be due to skin/subcutaneous damage from chronic sun exposure exacerbated by mild/moderate thrombocytopenia. 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 Discussed with patient again regarding work-up for splenomegaly as well as persistent but stable moderate leukopenia/thrombocytopenia and mild anemia, patient is still refusing rather prefer observation, knowing all the risk versus benefits. In that case we will see him back in 3 months with CBC, patient was advised to call us in case there is any evidence of gross bleeding. He was also advised not to take aspirin or NSAIDs and avoid trauma. Patient will follow-up with Dr. Ortiz regarding right kidney exophytic mass. Signed By: Dena Toribio M.D. <<Signature on File>>
== END 2019-12-13 06:09 | disposition home or self-care (01) ==
LOC: ONCMED 06:11
PROVIDERS: PCP Internal Medicine; Visit Provider Internal Medicine Hematology & Oncology
DX: D61.818 Other pancytopenia (principal); D72.819 Decreased white blood cell count, unspecified; D69.6 Thrombocytopenia, unspecified; D64.9 Anemia, unspecified; N28.89 Other specified disorders of kidney and ureter; K82.9 Disease of gallbladder, unspecified; R58 Hemorrhage, not elsewhere classified
CPT/HCPCS: G0463

== ENCOUNTER 2019-12-18 13:37 | Outpatient (CLI) | payer MEDICARE, BC, SELFPAY ==
--- NOTE | 2019-12-18 14:15 | US_ITS ---
WS: [id number] RENAL ULTRASOUND HISTORY: RIGHT RENAL MASS COMPARISON: 07/26/2019 and 08/09/2019. TECHNIQUE: 2-D and color Doppler imaging of the kidney submitted. Right kidney: 10.3 cm x 5.1 cm x 4.5 cm. Normal size kidney. No hydronephrosis. Exophytic solid mass from the inferior pole extends medially. Mass measures 3.5 x 2.9 x 3.5 cm and is not significantly increased in size. Mixed echogenicity with mild increased vascularity. Left kidney: 11.9 cm x 4.7 cm x 3.9 cm. Normal echogenicity with no hydronephrosis or mass. Aorta: Normal. Urinary Bladder: Normally distended bladder. Enlarged prostate gland encroaches into the bladder. Pro state measures 4.5 x 5.2 x 5.8 cm. Spleen is enlarged extending over a length of 19 cm. US/US renal BI* [id number] IMPRESSION: 1. Solid mass inferior pole RIGHT kidney measures 3.5 x 2.9 x 3.5 cm without s ignificant increase in size since 08/09/2019. 2. Marked splenomegaly. 3. Prostate gland enlargement.
== END 2019-12-18 13:38 | disposition home or self-care (01) ==
LOC: RAD 13:38
PROVIDERS: PCP Internal Medicine; Visit Provider Urology
DX: N28.89 Other specified disorders of kidney and ureter (principal); R16.1 Splenomegaly, not elsewhere classified; N40.0 Benign prostatic hyperplasia without lower urinary tract symptoms
CPT/HCPCS: 76770; 81001

== ENCOUNTER 2020-03-14 08:40 | Outpatient (CLI) | payer MEDICARE, BC, SELFPAY ==
--- NOTE | 2020-03-14 10:14 | ONC FU_ITS ---
Dr. Toribio follow up note Patient: Madison York Unit #: [id number]: 1935 Dicatated By: Dena Toribio M.D.Date of Visit:Mar 14, 2020 Onc Med Follow-up/Prog Note History of Present Illness: Mr. Desi York, is a 84-year-old gentleman who was recently diagnosed pancytopenia when his routine labs done on 06/13/2019 showed white blood count 1.1 hemoglobin 8.3 hematocrit 28.5 platelets 73,000 with a normal differential and his TSH was 52.0 B12 was 292 and patient was started on thyroid supplement Synthroid 50 ???g by mouth daily his repeat TSH on 06/25/2019 was 27.80 as repeat CBC done on 06/25/2019 shows white blood count 1.7, hemoglobin 8.1 hematocrit 28 platelets 76,000 MCV 82.1 and peripheral blood smear showed atypical lymphocytes. Patient denies any night sweats, denies any recent fever, denies any recent flulike symptoms, denies any peripheral lymphadenopathy, denies abdominal fullness, denies any weight loss. As per patient he is undergoing some sort of stress because of his son was diagnosed with esophageal cancer in April 2017 and he after few months and then suffered a stroke and now in a group home. Patient has long-standing history of alcohol use, as per patient he used to drink beer on daily basis for more than 30 years. But no hard liquor Patient denies starting any new medication recently patient denies any melena or hematochezia patient said he had colonoscopy done about 10 years ago at that time couple of polyps were removed and they were benign. Patient denies any indigestion or heartburn denies any jaundice denies any urine or stool color changes denies any petechiae or ecchymosis denies any headaches blurred vision double vision denies any dysuria . Abdominal sonogram showed liver size normal, no mass seen. Marked enlargement of spleen mild 19.1 cm and 18.3 cm. Normal homogeneous t echotexture. Right kidney 10.6 x 5.2 x 4.7 cm normal-sized kidney there is a solid exophytic mass from the inferior pole measuring 3.3 x 2.7 x 3.1 cm there is increased vascularity. Left kidney 10.5 x 5.1 cm exophytic cystic mass is slightly elongated and or will from the inferior lateral kidney measuring 7.5 x 3.[address] scan of abdomen done on 08/09/2019 showed solid mass lower pole right kidney measuring 2.7 x 2.3 x 3 cm consistent with renal cell carcinoma Hepatosplenomegaly marked enlargement of spleen with dilated portal vein. Finding consistent with portal hypertension. Simple left renal cyst 4 mm noncalcified right middle lobe nodule recommend CT scan 6 months. Mild dilatation with enhancement involving mid to distal left ureter of uncertain etiology Mild bladder wall thickening and right lateral diverticulum probably due to bladder obstruction or hypertrophic as there is an enlarged prostate gland. Patient said he has history of urinary bladder stones, causing obstruction, for which he went to the urologist in [place], Seen by Dr. Ortiz on 08/21/2019 regarding right kidney mass, as per patient treatment options including conservative observation were discussed patient opted for observation \ .Follow-up renal sonogram done on December 18, 2019 showed solid mass inferior right kidney measuring 3.5 x 2.9 x 3.5 cm without significant increase in size since August 09, 2019, markedly enlarged spleen and also seen prostate gland enlargement. Came for follow-up, denies any specific complaints, no nosebleed no gum bleed no melena or hematochezia, no hemoptysis or hematemesis, no hematuria. No jaundice, no abdominal pain, no night sweats, no recurrent fever. Medications: amLODIPine Besy-Benazepril HCl 1 Capsule (of 10-40 mg) Oral daily, Ferrous Sulfate 1 Tablet (of 325 (65 fe) mg) Oral b.i.d., glipiZIDE 1 Tablet (of 10 mg) Oral b.i.d., Levothyroxine Sodium 1 Tablet (of 50 mcg) Oral daily, Pravastatin Sodium 1 Tablet (of 40 mg) Oral daily, Tamsulosin HCl 1 Capsule (of 0.4 mg) Oral daily, Vitamin C 1 Capsule Oral b.i.d. Allergies: hydroCHLOROthiazide and Simvastatin. Review of Systems: Review of Systems is not available for this patient. Vital Signs: Performed on Mar 14, 2020 08:50 Height - 72.00 in Weight - 187.0 lbs (HIGH) BSA - 2.07 sq.m BMI - 25.36 Temperature - 97.5 F (LOW) Pulse - 83 /min Respiration - 20 /min BP - 174/72 mm(hg) (HIGH) O2 Sat - 96 % Pain - 0 Performance Status: 0 - Fully active, able to carry on all predisease activities without restrictions. (ECOG) Physical Examination: ENMT - No mouth sores, no thrush, no jaundice, Respiratory - Lungs are clear to auscultation, Cardiovascular - Regular rate and rhythm of heart, Abdomen - Soft, bowel sounds present, subcutaneous palpable under left Costal margin, Extremities - No visible edema. Lab/Imaging: Test performed on Mar 12, 2020 08:47 WBC 5.1 10^9/L RBC 3.88 10^12/L HGB 11.8 g/dL HCT 36.4 % MCV 93.8 fl MCH 30.4 pg MCHC 32.4 g/dL RDW 14.1 % Platelet Count 87 10^9/L Neutrophils (Gran) 3.06 10^9/L Lymphocytes 1.377 10^9/L Monocytes 0.41 10^9/L Eosinophils 0.10 10^9/L Test performed on Dec 12, 2019 08:45 Sodium 139 mmol/L Potassium 4.3 mmol/L Chloride 105 mmol/L CO2 28 mmol/L Anion Gap 10.3 BUN 18 mg/dL Creatinine 1.2 mg/dL Cr Clearance (Est) 53.65 mL/min Glucose 204 mg/dL Calcium 8.9 mg/dL Osmolality - Calculated 290 mOsm/kg Protein, Total 6.5 g/dL Albumin 4.2 g/dL Globulin 2.3 g/dL Bilirubin, Total 0.4 mg/dL ALT (SGPT) 18 U/L AST (SGOT) 25 U/L Alkaline Phosphatase 115 IU/L MPV 11.3 fL Basophils 0.0 10 3/uL Neutrophil % 52.1 % Lymphocyte % 36.2 % Monocyte % 8.9 % Eosinophil % 0.9 % Basophils % 0.5 % NRBC % 0 % CBC Slide Review Slide Review Perform SLIDE REVIEW AGREES WITH AUTOMATED RESULTS Impression: Pancytopenia, etiology, appears multifactorial including but not limited to, considering his age underlying myelodysplasia cannot be ruled out other possibility could be nutritional B12 or iron deficiency or copper deficiency and or due to hypothyroidism , recently diagnosed with hypothyroidism and started on thyroid supplements. Or splenic sequestration or primary marrow disorder. Abdominal sonogram done on 07/26/2019 showed marked enlargement of spleen measuring 19.1 x 18.3 cm normal homogeneous echotexture. Right kidney shows solid exophytic mass from inferior pole measuring 2.3 x 2.7 x 3.1 cm with increased vascularity Being followed by urology Left kidney shows exophytic cystic mass measuring 7.5 x 3.6 x 7.8 cm., Liver is normal size and echodensity. And is a soft tissue mass in the region of gallbladder fossa which could be contracted gallbladder with wall thickening and stones. Plan: Discussed with patient regarding his labs white blood count 5.1 hemoglobin 11.8 hematocrit 36.4 platelets 87,000 and renal sonogram which was done in December 2019 which shows no changes in the right kidney mass Clinically, patient doing well his follow-up labs shows white blood count is normalized and platelet count continue to improve and with mild but stable anemia. Sonogram shows splenomegaly which can explain persistent moderate thrombocytopenia and off and on leukopenia, will continue to monitor and patient is also being monitored by Dr. Ortiz regarding renal mass and prostamegaly. Return to clinic in 3 months with CBC, patient was advised in case he has any evidence of gross bleeding we will see him early Signed By: Dena Toribio M.D. <<Signature on File>>
== END 2020-03-14 08:41 | disposition home or self-care (01) ==
LOC: ONCMED 08:44
PROVIDERS: PCP Internal Medicine; Visit Provider Internal Medicine Hematology & Oncology
DX: D61.818 Other pancytopenia (principal); E03.9 Hypothyroidism, unspecified; N28.1 Cyst of kidney, acquired; N28.89 Other specified disorders of kidney and ureter; N40.0 Benign prostatic hyperplasia without lower urinary tract symptoms
CPT/HCPCS: G0463

== ENCOUNTER 2020-06-12 09:42 | Outpatient (CLI) | payer MEDICARE, BC, SELFPAY ==
--- NOTE | 2020-06-12 11:05 | ONC FU_ITS ---
Dr. Toribio follow up note Patient: Madison York Unit #: [id number]: 1935 Dicatated By: Dena Toribio M.D.Date of Visit:Jun 12, 2020 Onc Med Follow-up/Prog Note History of Present Illness: Mr. Desi York, is a 84-year-old gentleman who was recently diagnosed pancytopenia when his routine labs done on 06/13/2019 showed white blood count 1.1 hemoglobin 8.3 hematocrit 28.5 platelets 73,000 with a normal differential and his TSH was 52.0 B12 was 292 and patient was started on thyroid supplement Synthroid 50 ???g by mouth daily his repeat TSH on 06/25/2019 was 27.80 as repeat CBC done on 06/25/2019 shows white blood count 1.7, hemoglobin 8.1 hematocrit 28 platelets 76,000 MCV 82.1 and peripheral blood smear showed atypical lymphocytes. Patient denies any night sweats, denies any recent fever, denies any recent flulike symptoms, denies any peripheral lymphadenopathy, denies abdominal fullness, denies any weight loss. As per patient he is undergoing some sort of stress because of his son was diagnosed with esophageal cancer in April 2017 and he after few months and then suffered a stroke and now in a skilled nursing. Patient has long-standing history of alcohol use, as per patient he used to drink beer on daily basis for more than 30 years. But no hard liquor Patient denies starting any new medication recently patient denies any melena or hematochezia patient said he had colonoscopy done about 10 years ago at that time couple of polyps were removed and they were benign. Patient denies any indigestion or heartburn denies any jaundice denies any urine or stool color changes denies any petechiae or ecchymosis denies any headaches blurred vision double vision denies any dysuria . Abdominal sonogram showed liver size normal, no mass seen. Marked enlargement of spleen mild 19.1 cm and 18.3 cm. Normal homogeneous t echotexture. Right kidney 10.6 x 5.2 x 4.7 cm normal-sized kidney there is a solid exophytic mass from the inferior pole measuring 3.3 x 2.7 x 3.1 cm there is increased vascularity. Left kidney 10.5 x 5.1 cm exophytic cystic mass is slightly elongated and or will from the inferior lateral kidney measuring 7.5 x 3.[address] scan of abdomen done on 08/09/2019 showed solid mass lower pole right kidney measuring 2.7 x 2.3 x 3 cm consistent with renal cell carcinoma Hepatosplenomegaly marked enlargement of spleen with dilated portal vein. Finding consistent with portal hypertension. Simple left renal cyst 4 mm noncalcified right middle lobe nodule recommend CT scan 6 months. Mild dilatation with enhancement involving mid to distal left ureter of uncertain etiology Mild bladder wall thickening and right lateral diverticulum probably due to bladder obstruction or hypertrophic as there is an enlarged prostate gland. Patient said he has history of urinary bladder stones, causing obstruction, for which he went to the urologist in [place], Seen by Dr. Ortiz on 08/21/2019 regarding right kidney mass, as per patient treatment options including conservative observation were discussed patient opted for observation \ .Follow-up renal sonogram done on December 18, 2019 showed solid mass inferior right kidney measuring 3.5 x 2.9 x 3.5 cm without significant increase in size since August 09, 2019, markedly enlarged spleen and also seen prostate gland enlargement. Came for follow-up, denies any specific complaints, no fever chills, no nausea or vomiting, no diarrhea constipation, no melena or hematochezia, no nosebleed or gum bleed, no petechia or ecchymosis. . Medications: amLODIPine Besy-Benazepril HCl 1 Capsule (of 10-40 mg) Oral daily, Ferrous Sulfate 1 Tablet (of 325 (65 fe) mg) Oral b.i.d., glipiZIDE 1 Tablet (of 10 mg) Oral b.i.d., Levothyroxine Sodium 1 Tablet (of 50 mcg) Oral daily, Pravastatin Sodium 1 Tablet (of 40 mg) Oral daily, Tamsulosin HCl 1 Capsule (of 0.4 mg) Oral daily, Vitamin C 1 Capsule Oral b.i.d. Allergies: hydroCHLOROthiazide and Simvastatin. Review of Systems: Review of Systems is not available for this patient. Vital Signs: Performed on Jun 12, 2020 10:31 Height - 72.00 in Weight - 177.8 lbs (LOW) BSA - 2.03 sq.m BMI - 24.11 Temperature - 97.5 F (LOW) Pulse - 95 /min Respiration - 18 /min BP - 156/77 mm(hg) (HIGH) O2 Sat - 99 % Pain - 0 Performance Status: 0 - Fully active, able to carry on all predisease activities without restrictions. (ECOG) Physical Examination: ENMT - No mouth sores, no thrush, no jaundice, Respiratory - Lungs are clear to auscultation, Cardiovascular - Regular rate and rhythm of heart, Abdomen - Soft, bowel sounds present, Extremities - No visible edema. 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 Or primary marrow disorder. Abdominal sonogram done on 07/26/2019 showed marked enlargement of spleen measuring 19.1 x 18.3 cm normal homogeneous echotexture. Right kidney shows solid exophytic mass from inferior pole measuring 2.3 x 2.7 x 3.1 cm with increased vascularity Being followed by urology Left kidney shows exophytic cystic mass measuring 7.5 x 3.6 x 7.8 cm., Liver is normal size and echodensity. And is a soft tissue mass in the region of gallbladder fossa which could be contracted gallbladder with wall thickening and stones. Plan: Discussed with patient regarding his labs white blood count 6 hemoglobin 11.3 hematocrit 34.8 platelets 100,000 compared to 87,000 on March 12, 2020 Clinically, patient is doing well with no signs symptoms history of gross bleeding, his follow-up lab work-up is stable with further improvement in his platelet count and stable mild anemia, will continue to monitor and he will return to clinic in 3 months with CBC As far as left kidney mass is concerned, patient is being followed by Dr. Ortiz, as per patient he is scheduled for scans next week and then he will see Dr. Ortiz on same day. Signed By: Dena Toribio M.D. <<Signature on File>>
== END 2020-06-12 09:43 | disposition home or self-care (01) ==
LOC: ONCMED 09:47
PROVIDERS: PCP Internal Medicine; Visit Provider Internal Medicine Hematology & Oncology
DX: D75.89 Other specified diseases of blood and blood-forming organs (principal); E03.9 Hypothyroidism, unspecified; D64.9 Anemia, unspecified; N28.89 Other specified disorders of kidney and ureter
CPT/HCPCS: G0463

== ENCOUNTER 2020-06-17 08:49 | Outpatient (CLI) | payer MEDICARE, BC, SELFPAY ==
--- NOTE | 2020-06-17 12:45 | US_ITS ---
WS: [id number] RENAL ULTRASOUND HISTORY: RENAL MASS COMPARISON: 12/18/2019, 08/09/2019 TECHNIQUE: 2-D and color Doppler imaging of the kidney submitted. Right kidney: 10.5 cm x 5.1 cm x 4.8 cm. Normal size kidney. Solid exophytic mass from the lower pole of the RIGHT kidney. Mass measures 4.4 x 3.4 cm. Very slight increase in size as compared to the prior examination. Left kidney: 10.8 cm x 5.0 cm x 4.1 cm. Normal size kidney. Simple cyst from the mid LEFT kidney measures 7.7 x 3.0 x 4.0 cm. No obstruction. Aorta: Normal. Urinary Bladder: Well-distended urinary bladder. There is a soft tissue mass extending into the urina ry bladder from the base. This mass measures 3.8 x 3.0 x 3.6 cm. Most likely this is prostate gland e nlargement encroaching into the bladder. US/US renal BI* [id number] IMPRESSION: 1. Solid mass lower pole RIGHT kidney with slight increase in size now measuri ng 4.4 x 3.4 cm. Suspicious for renal cell neoplasm. 2. Lobulated soft tissue mass extending into the urinary bladder from the base is probably an enlarged prostate gland. Neoplasm not excluded.
== END 2020-06-17 08:50 | disposition home or self-care (01) ==
LOC: RAD 08:54
PROVIDERS: PCP Internal Medicine; Visit Provider Urology
DX: N28.89 Other specified disorders of kidney and ureter (principal)
CPT/HCPCS: 76770

== ENCOUNTER 2020-09-04 10:36 | Outpatient (CLI) | payer MEDICARE, BC, SELFPAY ==
[2020-09-04 11:43] LABS: Basophils % 0.5 %; Eosinophils # 0.1 10^3/uL (0.0-0.8); Eosinophils % 1.3 %; Hematocrit 36.4 % (42.0-52.0); Hemoglobin 11.6 g/dL (11.7-16.6); Lymphocytes % 26.1 %; Mean Corpuscular HGB Conc 31.9 g/dL (30.0-36.0); Mean Corpuscular Hemoglobin 28.2 pg (28.0-34.0); Mean Corpuscular Volume 88.6 fL (80-94); Mean Platelet Volume 10.8 fL (7.4-10.4); Monocytes # 0.9 10^3/uL (0.2-0.9); Monocytes % 23.2 %; Neutrophils # 1.83 10^3/uL (1.8-7.7); Neutrophils % 47.9 %; Nucleated Red Blood Cells % 0 %; Platelet Count 87 10^3/cmm (130-400); Red Blood Count 4.11 10^6/uL (4.1-5.3); Red Cell Distribution Width 16.4 % (12.1-15.1); White Blood Count 3.8 10^3/uL (4.0-10.0)
[2020-09-04 12:09] LABS: Slide Review Slide Review Perform
== END 2020-09-04 10:37 | disposition home or self-care (01) ==
PROVIDERS: PCP Internal Medicine; Visit Provider Internal Medicine Hematology & Oncology
DX: D61.818 Other pancytopenia (principal)
CPT/HCPCS: 36415; 85025

== ENCOUNTER 2020-09-05 06:01 | Outpatient (CLI) | payer MEDICARE, BC, SELFPAY ==
--- NOTE | 2020-09-05 12:15 | ONC FU_ITS ---
Dr. Toribio follow up note Patient: Madison York Unit #: [id number]: [id number] Dicatated By: Dena Toribio M.D.Date of Visit:September 05, 2020 Onc Med Follow-up/Prog Note History of Present Illness: Mr. Desi York, is a 84-year-old gentleman who was recently diagnosed pancytopenia when his routine labs done on 06/13/2019 showed white blood count 1.1 hemoglobin 8.3 hematocrit 28.5 platelets 73,000 with a normal differential and his TSH was 52.0 B12 was 292 and patient was started on thyroid supplement Synthroid 50 ???g by mouth daily his repeat TSH on 06/25/2019 was 27.80 as repeat CBC done on 06/25/2019 shows white blood count 1.7, hemoglobin 8.1 hematocrit 28 platelets 76,000 MCV 82.1 and peripheral blood smear showed atypical lymphocytes. Patient denies any night sweats, denies any recent fever, denies any recent flulike symptoms, denies any peripheral lymphadenopathy, denies abdominal fullness, denies any weight loss. As per patient he is undergoing some sort of stress because of his son was diagnosed with esophageal cancer in April 2017 and he after few months and then suffered a stroke and now in a detention. Patient has long-standing history of alcohol use, as per patient he used to drink beer on daily basis for more than 30 years. But no hard liquor Patient denies starting any new medication recently patient denies any melena or hematochezia patient said he had colonoscopy done about 10 years ago at that time couple of polyps were removed and they were benign. Patient denies any indigestion or heartburn denies any jaundice denies any urine or stool color changes denies any petechiae or ecchymosis denies any headaches blurred vision double vision denies any dysuria . Abdominal sonogram showed liver size normal, no mass seen. Marked enlargement of spleen mild 19.1 cm and 18.3 cm. Normal homogeneous t echotexture. Right kidney 10.6 x 5.2 x 4.7 cm normal-sized kidney there is a solid exophytic mass from the inferior pole measuring 3.3 x 2.7 x 3.1 cm there is increased vascularity. Left kidney 10.5 x 5.1 cm exophytic cystic mass is slightly elongated and or will from the inferior lateral kidney measuring 7.5 x 3.[address] scan of abdomen done on 08/09/2019 showed solid mass lower pole right kidney measuring 2.7 x 2.3 x 3 cm consistent with renal cell carcinoma Hepatosplenomegaly marked enlargement of spleen with dilated portal vein. Finding consistent with portal hypertension. Simple left renal cyst 4 mm noncalcified right middle lobe nodule recommend CT scan 6 months. Mild dilatation with enhancement involving mid to distal left ureter of uncertain etiology Mild bladder wall thickening and right lateral diverticulum probably due to bladder obstruction or hypertrophic as there is an enlarged prostate gland. Patient said he has history of urinary bladder stones, causing obstruction, for which he went to the urologist in [place], Seen by Dr. Ortiz on 08/21/2019 regarding right kidney mass, as per patient treatment options including conservative observation were discussed patient opted for observation \ .Follow-up renal sonogram done on December 18, 2019 showed solid mass inferior right kidney measuring 3.5 x 2.9 x 3.5 cm without significant increase in size since August 09, 2019, markedly enlarged spleen and also seen prostate gland enlargement. Came for follow-up, denies any specific complaints, no fever chills, no nausea or vomiting, no diarrhea or constipation, no nosebleed or gum bleed, no hematuria., Following with Dr. Ortiz regarding his renal mass, as per patient he is scheduled to see him in November 2020 . Medications: amLODIPine Besy-Benazepril HCl 1 Capsule (of 10-40 mg) Oral daily, Ferrous Sulfate 1 Tablet (of 325 (65 fe) mg) Oral b.i.d., glipiZIDE 1 Tablet (of 10 mg) Oral b.i.d., Levothyroxine Sodium 1 Tablet (of 50 mcg) Oral daily, Pravastatin Sodium 1 Tablet (of 40 mg) Oral daily, Tamsulosin HCl 1 Capsule (of 0.4 mg) Oral daily, Vitamin C 1 Capsule Oral b.i.d. Allergies: hydroCHLOROthiazide and Simvastatin. Review of Systems: Review of Systems is not available for this patient. Vital Signs: Performed on September 05, 2020 10:49 Height - 72.00 in Weight - 171.2 lbs (LOW) BSA - 1.99 sq.m BMI - 23.22 Temperature - 97.4 F (LOW) Pulse - 80 /min Respiration - 18 /min BP - 170/78 mm(hg) (HIGH) O2 Sat - 98 % Pain - 0 Performance Status: 0 - Fully active, able to carry on all predisease activities without restrictions. (ECOG) Physical Examination: ENMT - No mouth sores, no thrush, no jaundice, no cervical lymphadenopathy, Respiratory - Lungs are clear to auscultation, Cardiovascular - Regular rate and rhythm of heart, Abdomen - Soft, bowel sounds present, hepatosplenomegaly present, Extremities - No visible edema but old healing ecchymosis on the right hand. 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 Or primary marrow disorder. Abdominal sonogram done on 07/26/2019 showed marked enlargement of spleen measuring 19.1 x 18.3 cm normal homogeneous echotexture. Right kidney shows solid exophytic mass from inferior pole measuring 2.3 x 2.7 x 3.1 cm with increased vascularity Being followed by urology Left kidney shows exophytic cystic mass measuring 7.5 x 3.6 x 7.8 cm., Liver is normal size and echodensity. And is a soft tissue mass in the region of gallbladder fossa which could be contracted gallbladder with wall thickening and stones. 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 We will continue to monitor As for as renal mass is concerned, patient being followed by Dr. Ortiz. Return to clinic in 6 months with CBC Signed By: Dena Toribio M.D. <<Signature on File>>
== END 2020-09-05 06:02 | disposition home or self-care (01) ==
LOC: ONCMED 06:04
PROVIDERS: PCP Internal Medicine; Visit Provider Internal Medicine Hematology & Oncology
DX: D61.818 Other pancytopenia (principal); D51.9 Vitamin B12 deficiency anemia, unspecified; D50.9 Iron deficiency anemia, unspecified; E61.0 Copper deficiency; E03.9 Hypothyroidism, unspecified; R16.1 Splenomegaly, not elsewhere classified; N28.1 Cyst of kidney, acquired; K80.20 Calculus of gallbladder without cholecystitis without obstruction; Z79.899 Other long term (current) drug therapy
CPT/HCPCS: 99214